=== PATIENT | male | born 1980 | race African-American/Black ===

== ENCOUNTER 2018-07-11 14:11 | Emergency (ER) | payer OTHER ==
[~2018-07-11] VITALS: Ht 187.9 cm; Wt 129.3 kg
[~2018-07-11 14:11] MED LIST: BACTRIM DS 8001 TA1 PO; MOTRIN800 MG PO; NAPROSYN500 MG PO; NORCO 325 MG-51 TAB PO; PEN-V500 MG PO; PERIDEX 480 ML480 ML PO; ZOLOFT100 MG PO
[2018-07-11] MEDS ORDERED: KEFLEX500 M1 PO (14:43)
[2018-07-11] MEDS ORDERED: NAPROSYN500 MG PO (14:43)
== END 2018-07-11 15:44 | disposition home or self-care (01) ==
LOC: ED 14:11
DX: S61.011A Laceration without foreign body of right thumb without damage to nail, initial encounter (principal); R03.0 Elevated blood-pressure reading, without diagnosis of hypertension; W25.XXXA Contact with sharp glass, initial encounter; Y93.89 Activity, other specified; Y92.89 Other specified places as the place of occurrence of the external cause; Y99.9 Unspecified external cause status

== ENCOUNTER 2024-08-01 20:13 | Emergency (ER) | payer OTHER ==
[~2024-08-01] VITALS: Ht 188 cm; Wt 108.9 kg
[~2024-08-01 20:13] MED LIST changes: +KEFLEX500 M1 PO
[2024-08-01] MEDS ORDERED: Tdap Vaccine 0.5 ML SYR (Adult Vaccine) IM ONE (20:25)
[2024-08-01] MEDS ORDERED: Bacitracin Zinc 14 GM TUBE T ONE (20:30)
[2024-08-01] MEDS ORDERED: Ondansetron Hydrochloride 4 MG/2 ML VIAL IV ONE (20:30)
[2024-08-01] MEDS ORDERED: Amoxicillin/Clavulanate Pota 875 MG TAB PO ONE (20:30)
[2024-08-01] MEDS ORDERED: SODIUM CHLORIDE 0.9% 1,000 ML IV ONE (20:30)
[2024-08-01] MEDS ORDERED: AMOX-CLAV 875-1 EACH PO (21:12)
[2024-08-01] MEDS ORDERED: Acetaminophen/Oxycodone 5 MG/325 MG TABLET PO ONE (21:20)
== END 2024-08-01 21:39 | disposition home or self-care (01) ==
LOC: ED 20:13
DX: S51.831A Puncture wound without foreign body of right forearm, initial encounter (principal); R11.0 Nausea; R61 Generalized hyperhidrosis; F32.A Depression, unspecified; W54.0XXA Bitten by dog, initial encounter; Y93.89 Activity, other specified; Y92.89 Other specified places as the place of occurrence of the external cause; Y99.8 Other external cause status

== ENCOUNTER → 2025-09-27 | Outpatient (CLI) | payer OTHER ==
[~2025-09-27] MED LIST changes: +AMOX-CLAV 875-1 EACH PO
[2025-09-27 18:37] LABS: BASO # 0.0 10*3/uL (0.0-0.1); BASO % 0.2 % (0.0-1.0); EOS # 0.3 10*3/uL (0.0-0.4); EOS % 2.4 % (1.0-4.0); MEAN CELL VOLUME 82.5 fl (80.0-94.0); MEAN CORPUSCULAR HGB 29.4 pg (27.0-31.0); MEAN PLATELET VOLUME 10.1 fl (9.6-12.3); MONO # 0.6 10*3/uL (0.1-1.0); MONO % 5.2 % (3.0-9.0); NEUT # 8.3 10*3/uL (2.3-7.9); NEUT % 71.4 % (47.0-73.0); NUCLEATED RED BLOOD CELL 0.0 % (0.0-0.0); NUCLEATED RED BLOOD CELL 0.0 10*3/uL (0.0-0.0); PLATELET COUNT AUTOMATED 330 10*3/uL (130-400); RED CELL DISTRI WIDTH 12.7 % (0-14.5)
[2025-09-27 19:07] LABS: BUN 8 mg/dl (9-23); SGPT/ALT 11 U/L (5-49)
== END | disposition home or self-care (01) ==
LOC: RHCWE 16:21
PROVIDERS: ATTEND Nurse Practitioner Family
DX: R53.83 Other fatigue (principal)